=== PATIENT | male | born 1980 | race Caucasian/White ===

== ENCOUNTER 2024-11-23 10:32 | Emergency (ER) | payer BC, SELFPAY ==
[2024-11-23] VITALS (9 sets, daily range): BP systolic 128–191; BP diastolic 88–112; PULSE 98–126; RESP 20–26; TEMP 36.8–37.2; O2SAT 93–100; BMI 35.3
--- NOTE | 2024-11-23 11:01 | EKG12_ITS ---
Test Reason : TACHYCARDIA Blood Pressure : */* mmHG Vent. Rate : 115 BPM Atrial Rate : 115 BPM P-R Int : 140 ms QRS Dur : 80 ms QT Int : 308 ms P-R-T Axes : 44 21 33 degrees QTcB Int : 426 ms Sinus tachycardia Otherwise normal ECG Confirmed by Esteban Rayo ([id number]), newspaper photo editor JOVAN WEBBER ([id number]) on 11/24/2024 8:25:36 AM Referred By: Confirmed By: Esteban Rayo
--- NOTE | 2024-11-23 11:03 | CT_ITS ---
EXAM: CT ABDOMEN AND PELVIS WITH INTRAVENOUS CONTRAST CLINICAL INDICATION: Abdominal pain TECHNIQUE: Helically acquired images were obtained of the abdomen and pelvis with intravenous contrast. This CT exam was performed using one or more of the following dose reduction techniques: automated exposure control, adjustment of the mA and/or kV according to patient size, and/or use of iterative reconstruction technique. CONTRAST: IV 100mL Isovue-300 RADIATION DOSE: CTDIvol = 17.00 mGy, DLP = 1433.88 mGy-cm COMPARISON: CT abdomen and pelvis without contrast 11/12/2009. FINDINGS: LOWER THORAX: Multiple inflammatory tree-in-bud centrilobular opacities in the left lower lobe. No cardiomegaly. No significant pericardial effusion. ABDOMEN: LIVER: Mild diffuse fatty infiltration of liver. GALLBLADDER AND BILE DUCTS: Unremarkable. No calcified gallstones. No gallbladder distention or wall edema. No intra- or extrahepatic biliary ductal dilation. PANCREAS: Unremarkable. No focal cystic or solid mass. SPLEEN: Unremarkable. Normal size without focal cystic or solid mass. ADRENALS: Unremarkable. No nodules. KIDNEYS AND URETERS: Unremarkable. Normal renal size and position. No hydronephrosis. STOMACH AND BOWEL: Unremarkable. No stomach or bowel distention. No focal inflammatory change. PELVIS: APPENDIX: Normal. BLADDER: Unremarkable. REPRODUCTIVE: Unremarkable as visualized. No mass. ABDOMEN and PELVIS: INTRAPERITONEAL SPACE: Unremarkable. No ascites or other fluid collection. No free air. BONES/JOINTS: Unremarkable. No suspicious lytic or blastic abnormality. SOFT TISSUES: Unremarkable. No discrete abdominal or pelvic wall hernia. VASCULATURE: Unremarkable. Abdominal aorta is non-dilated. LYMPH NODES: Unremarkable. No enlarged lymph nodes. CT/Abdomen/Pelvis W IV Cont ONLY IMPRESSION: 1. No acute findings in the abdomen or pelvis. 2. Infectious tree-in-bud opacities in the left lower lobe worrisome for aspiration pneumonia. This is a new finding. 3. Mild diffuse hepatic steatosis, new since 11/12/2001. Electronically Signed: Cb Mckeon MD at 12:43 EST ,
--- NOTE | 2024-11-23 11:04 | ED.VIS.DYS ---
HPI History of Present Illness Chief Complaint: Shortness of Breath Narrative Narrative: Chief complaint and HPI: Shortness of breath and flulike symptoms. 44-year-old male with no significant past medical history presents for evaluation of shortness of breath and flulike symptoms. Patient states for the past several days he has been having fever, cough, shortness of breath. He has been taking OTC medications with little relief. He states that last week he was seen at an urgent care for symptoms. States that he had viral testing that was negative. Chest x-ray negative for pneumonia. Patient states that he was discharged home with symptomatic management and albuterol as needed for wheezing. Patient states his symptoms have not proved. He states his cough and shortness of breath has worsened. Patient states for the past 2 days he has been having worsening abdominal distention, abdominal pain, nausea, vomiting. States he was constipated but then had 1 episode of diarrhea yesterday. Denies any chest pain or dysuria. Review of systems: See HPI Medications: As listed on the chart Allergies: As listed on the chart PFSH: Per chart Vital signs: As listed on the chart. Reviewed. Physical exam: Gen: A&O x3, NAD, nontoxic-appearing Head: Normocephalic, atraumatic Eyes: No sclera icterus, conjunctiva clear, PERRL, EOMI ENT: Moist mucous membranes Neck: Trachea midline, No JVD, no meningismus CV: Tachycardic, regular rhythm no murmurs, no peripheral edema Resp: Lungs diminished in the bilateral bases, few intermittent expiratory wheeze, + dry cough GI: Abd soft, mildly distended, mild diffuse tenderness to palpation, no r/r/g Musc: Full ROM, no deformity Skin: Warm, dry Neuro: Alert, oriented, grossly intact, sensation intact Psych: Cooperative, appropriate mood and affect PFSH PFSH Medical History no medical history Home Medications ?Medication ?Instructions ?Recorded ?Last Taken ?Type benzonatate 100 mg capsule 100 mg PO TID PRN cough 5 days #15 11/23/24 Unknown Rx caps levofloxacin 750 mg tablet 750 mg PO DAILY 7 days #7 tabs 11/23/24 Unknown Rx metronidazole 500 mg tablet 500 mg PO BID 7 days #14 tabs 11/23/24 Unknown Rx Allergy/AdvReac Type Severity Reaction Status Date / Time No Known Allergies Allergy Verified 11/23/24 10:36 Family History no significant family his Surgical History no surgical history Social History Smoking Status: Never smoker EXAM Physical Exam Const Vital Signs: 11/23/24 10:34 11/23/24 11:20 11/23/24 11:36 Temperature 99 F 99 F Temperature Source Temporal Temporal Pulse Rate 126 H 116 H 98 Respiratory Rate 26 H 22 H 20 H Respiratory Effort Respiratory Depth Respiratory Pattern Tachypnea Blood Pressure 191/112 H 152/88 H Blood Pressure Mean 138 109 Pulse Ox 100 98 Oxygen Delivery Method Room Air Room Air 11/23/24 11:40 11/23/24 12:00 11/23/24 13:00 Temperature 98.9 F Temperature Source Oral Pulse Rate 115 H 110 H Respiratory Rate 21 H Respiratory Effort Normal Short of Breath Respiratory Depth Normal Respiratory Pattern Normal Blood Pressure 162/108 H 158/106 H Blood Pressure Mean 126 123 Pulse Ox 96 93 Oxygen Delivery Method Room Air 11/23/24 14:00 11/23/24 14:13 11/23/24 14:27 Temperature 98.2 F 98.2 F Temperature Source Oral Pulse Rate 100 100 Respiratory Rate 20 H Respiratory Effort Respiratory Depth Respiratory Pattern Blood Pressure 128/90 H 128/90 H Blood Pressure Mean 102 102 Pulse Ox 98 Oxygen Delivery Method MDM MDM MDM Narrative Medical decision making narrative: 44-year-old male with no significant past medical history presents for evaluation of shortness of breath and flulike symptoms. Associated symptom is abdominal distention, diarrhea, nausea, vomiting. Differential diagnosis includes but is not limited to pneumonia, viral illness, electrolyte abnormality, ileus, constipation, UTI, intra-abdominal pathology. NS bolus, Toradol, Zofran ordered for symptoms. Breathing treatments ordered. Laboratory and imaging workup ordered. EKG reviewed see below. CBC without leukocytosis or anemia. BMP relatively unremarkable. No MEAGAN. Patient has mild transaminitis. Lipase unremarkable. UA negative for UTI. states patient's CT abdomen pelvis shows no acute intra-abdominal pathology. Patient has mild diffuse hepatic steatosis which is new from 11/12. With his transaminitis he is to follow-up with his primary care physician. However his transaminitis could be secondary to viral illness or current infection. Patient has infectious tree-in-bud opacities in the left lower lobe worrisome for aspiration pneumonia. Patient states that he has had nausea and vomiting. He may have aspirated. Chest x-ray again shows left lower lobe pneumonia. On reevaluation, patient's shortness of breath has improved with breathing treatments. His wheezing has improved and he is now moving more air. He has hypertension and tachycardia has resolved. Patient's symptoms are likely secondary to pneumonia. Given concern for possible aspiration pneumonia patient will be treated with a 7-day course of Levaquin as well as Flagyl. He was educated on continuing Mucinex and will prescribe Tessalon Perles. Return precautions explained. Follow-up with PCP. He confirmed understanding the plan. Patient stable to discharge home. EKG: Interpreted by me/EM physician: EKG shows sinus tachycardia without any acute ischemic changes. Heart rate 115. Diagnostic: Interpreted by me/EM physician: Chest x-ray shows left lower lobe pneumonia Impression: 1. Left lower lobe pneumonia, concern for aspiration 2. Mild hepatic steatosis, will need follow-up with PCP Lab Data Labs: Laboratory Results - last 24 hr 11/23/24 11/23/24 11:18 12:02 WBC 5.2 RBC 4.79 Hgb 14.2 Hct 41.5 MCV 86.6 MCH 29.6 MCHC 34.2 RDW Std Deviation 38.9 RDW Coeff of Sebastian 12.3 Plt Count 187 MPV 8.8 Immature Gran % (Auto) 0.200 Neut % (Auto) 72.5 H Lymph % (Auto) 19.9 Towns % (Auto) 6.4 Eos % (Auto) 0.8 Baso % (Auto) 0.2 Absolute Neuts (auto) 3.8 Absolute Lymphs (auto) 1.03 Nucleated RBC % 0 Sodium 135 L Potassium 3.9 Chloride 102 Carbon Dioxide 28.0 Anion Gap 5 BUN 9 Creatinine 0.82 Estim Creat Clear Calc 158.65 Est GFR (MDRD) Af Amer 132 Est GFR (MDRD) Non-Af 109 BUN/Creatinine Ratio 11.0 Glucose 105 Calcium 8.9 Total Bilirubin 0.60 AST 40 H ALT 65 H Alkaline Phosphatase 103 Total Protein 7.5 Albumin 3.3 Globulin 4.2 Albumin/Globulin Ratio 0.8 L Lipase 29 Urine Color Yellow Urine Clarity Clear Urine pH 7.0 Ur Specific [place] 1.005 Urine Protein Negative Urine Glucose (UA) Normal Urine Ketones Negative Urine Occult Blood Negative Urine Nitrite Negative Urine Bilirubin Negative Urine Urobilinogen Normal Ur Leukocyte Esterase Negative Urine RBC 0 SEEN Urine WBC 0 SEEN Ur Squamous Epith Cells 0 SEEN Urine Bacteria 0 SEEN Urine Mucus 0 SEEN Radiography Diagnostic Testing: Clinical Impression(s) from Imaging Studies Abdomen/Pelvis CT 11/23/24 11:03 IMPRESSION: 1. No acute findings in the abdomen or pelvis. 2. Infectious tree-in-bud opacities in the left lower lobe worrisome for aspiration pneumonia. This is a new finding. 3. Mild diffuse hepatic steatosis, new since 11/12/2001. Electronically Signed: Cb Mckeon MD at 12:43 EST , Chest X-Ray 11/23/24 13:00 IMPRESSION: Suspicious left lower lobe pneumonia. Electronically Signed: Cb Mckeon MD at 13:39 EST , Discharge Plan Triage Chief Complaint: Shortness of Breath ED Provider: Ivan Zarco Dx/Rx/DC Orders Clinical Impression: Pneumonia Instructions: What Is Pneumonia?, Preventing Pneumonia, Treating Pneumonia Prescriptions: New levofloxacin 750 mg tablet 750 mg PO DAILY 7 Days Qty: 7 0RF metronidazole 500 mg tablet 500 mg PO BID 7 Days Qty: 14 0RF benzonatate 100 mg capsule 100 mg PO TID PRN (Reason: cough) 5 Days Qty: 15 0RF Primary Care Provider: NOT,DEFINED Referrals: Jose Whitehead MD [Med Staff - Active Staff] - 3-5 Days NOT,DEFINED [Primary Care Provider] - Activity Restrictions/Additional Instructions: Follow-up with your primary care physician. Return back to the ED if symptoms change or worsen. If you do not have a primary care physician please see the one provided above. Print Language: Pashto Disposition Disposition: Home, Self Care Discharge Date/Time: 11/23/24 14:39
[2024-11-23] MEDS: Albuterol 2.5 MG/3 ML VIAL.NEB. INHALATION (11:19)
[2024-11-23] MEDS: Ipratropium/Albuterol Sulfate 3 ML AMPUL.NEB INHALATION (11:19)
[2024-11-23 11:32] LABS: Absolute Lymphocyte Count 1.03 X10^3/uL (0.83-4.51); Absolute Neutrophil Count 3.8 X10^3/uL (2.0-7.7); Basophil# 0.01 X10^3/uL; Basophil% 0.2 % (0-1); Eosinophil# 0.04 X10^3/uL; Eosinophils% 0.8 % (0-5); Hematocrit 41.5 % (40-54); Hemoglobin 14.2 g/dL (13.0-16.5); Lymphocyte # 1.03 X10^3/ul (0.83-4.51); Lymphocyte % 19.9 % (19-41); Mean Corp Hgb Conc 34.2 g/dL (32-36); Mean Corpuscular Hgb 29.6 pg (27.0-32.0); Mean Corpuscular Volume 86.6 fL (80-94); Mean Platelet Vol. 8.8 fl (6.2-12.0); Monocyte# 0.33 X10^3/uL; Monocyte% 6.4 % (0-10); NRBC Flagged by Analyzer 0 % (0-5); Neutrophil # 3.76 X10^3/uL (2.7-7.7); Neutrophil % 72.5 % (47-70); Platelet Count 187 K/mm3 (150-450); RBC Distribution Width CV 12.3 % (11.6-14.6); RBC Distribution Width SD 38.9 fl (35.1-43.9); Red Blood Count 4.79 M/mm3 (4.6-6.2); White Blood Count 5.2 K/mm3 (4.4-11.0)
[2024-11-23] MEDS: Ketorolac 15 MG/ML Vial IV (11:39)
[2024-11-23] MEDS: 0.9% Normal Saline (1000mL) 1,000 ML 999 ML IV (11:39)
[2024-11-23] MEDS: Ondansetron 4 MG/2 ML Vial IV (11:39)
[2024-11-23 11:43] LABS: ALB/GLOB Ratio 0.8 RATIO (0.9-2.4); AST(SGOT) 40 U/L (15-37); Alanine Aminotransfer ALT/SGPT 65 U/L (16-61); Albumin, Serum 3.3 g/dL (3.2-5.0); Alkaline Phosphatase 103 U/L (45-117); Anion Gap 5 (5-15); BUN 9 mg/dL (7-18); Calcium,Total 8.9 mg/dL (8.5-10.1); Chloride 102 mmol/L (98-107); Creatinine, Serum 0.82 mg/dL (0.70-1.30); EST Glomerular Filtration Rate 109 mL/min (>60); Est Glom Filt Rate - Afr Amer 132 mL/min (>60); Estimated Creatinine Clearance 158.65 ml/min; Globulin 4.2 g/dL (2.2-4.2); Glucose 105 mg/dL (74-106); Lipase 29 U/L (13-75); Potassium 3.9 mmol/L (3.5-5.1); Protein, Total 7.5 g/dL (6.4-8.2); Sodium Level 135 mmol/L (136-145)
[2024-11-23 12:06] LABS: Bacteria 0 SEEN /hpf (None Seen); Mucous, Urine 0 SEEN /hpf (<or=2+); Red Blood Cells-Urine 0 SEEN /hpf (0-5); Squamous Epithelial Cells - UA 0 SEEN /hpf (0-5); White Blood Cells 0 SEEN /hpf (0-5)
[2024-11-23 12:07] LABS: Color, Urine Yellow (Yellow); Glucose, Dipstick Normal (Normal); Ketone-Dipstick Negative (Negative); Leukocyte Esterase-Dipstick Negative /ul (Negative); Nitrite-Dipstick Negative (Negative); Occult Blood-Urine Negative /ul (Negative); Protein-Dipstick Negative (Negative); Specific Gravity, Urine 1.005 (1.002-1.030); Urine Bilirubin Dipstick Negative (Negative); Urine Clarity Clear (Clear); Urine Urobilinogen Normal (Normal)
--- NOTE | 2024-11-23 13:00 | RAD_ITS ---
EXAM: XR CHEST, 2 VIEWS CLINICAL INDICATION: Shortness of breath TECHNIQUE: Frontal and lateral views of the chest. COMPARISON: No relevant prior studies available. FINDINGS: LUNGS AND PLEURAL SPACES: Suspicious ill-defined alveolar infiltrates in the left lower lobe. No pneumothorax. No effusion. HEART: Unremarkable. Cardiac silhouette not enlarged. MEDIASTINUM: Central airways and mediastinal contour are unremarkable. BONES/JOINTS: Unremarkable. No acute fracture. SOFT TISSUES: Unremarkable. RAD/Chest PA and Lateral IMPRESSION: Suspicious left lower lobe pneumonia. Electronically Signed: Cb Mckeon MD at 13:39 EST ,
== END 2024-11-23 14:39 | disposition home or self-care (01) ==
PROVIDERS: Emergency Provider Surgery; Visit Provider Surgery
DX: J18.9 Pneumonia, unspecified organism (principal); K76.0 Fatty (change of) liver, not elsewhere classified; R10.9 Unspecified abdominal pain; R11.2 Nausea with vomiting, unspecified; Z79.899 Other long term (current) drug therapy
CPT/HCPCS: 71046; 74177; 80053; 81001; 83690; 85025; 87631; 93005; 94640; 96361; 96374; 96375; 99284; Q9967; A4216; J2405